=== PATIENT | female | born 1945 | race Caucasian/White ===

== ENCOUNTER 2020-01-16 07:44 | Outpatient (CLI) | payer OTHER, SELFPAY ==
[2020-01-18 13:56] LABS: SARS-CoV-2 RNA Undetected (Undetected); SARS-CoV-2 Specimen Source Nasopharynx
== END 2020-01-16 08:04 ==
PROVIDERS: Visit Provider Internal Medicine
DX: Z11.59 Encounter for screening for other viral diseases (principal)
CPT/HCPCS: U0003

== ENCOUNTER 2024-01-13 09:35 | Emergency (ER) | payer MEDICARE, SELFPAY ==
[2024-01-13] VITALS (34 sets, daily range): BP systolic 139–205; BP diastolic 65–101; PULSE 69–95; RESP 8–24; TEMP 36.2; O2SAT 94–98
--- NOTE | 2024-01-13 10:02 | ED.GENADUL_ITS ---
Discharge Plan Disposition Patient Disposition: Transfer-Acute Inpatient Care Specific Acute Inpt Facility: [facility] Condition: Stable Discharge Details Chief Complaint: Trauma Clinical Impression: Fracture, tibial plateau, Bilateral calcaneal fractures, Deep laceration of ankle, Closed L1 vertebral fracture, Foot, fracture, navicular Primary Care Provider: Unknown,Unknown ED Provider: Enrique Ansari General Date/Time Provider Initiated Documentation: 01/13/24 09:55 . HPI Narrative: 78-year-old female brought in for evaluation of deep lacerations to bilateral posterior ankles, fell from a 16 foot ladder and got her lower extremities caught in the rungs, hemostatic; patient landed on her back denies losing consciousness denies chest or abdominal discomfort does have some mid and lower back discomfort, denies blood thinner use General Stated Complaint: Trauma CRYSTAL: 2 Exam Narrative Exam Narrative: Alert oriented no acute distress does appear mildly uncomfortable Moist mucous membranes telling secretions Pupils round equal reactive to light No midline cervical tenderness step-off crepitus or deformity Lungs clear bilaterally no rales rhonchi or wheezing Normal heart sounds no murmurs rubs or gallops Abdomen soft nontender nondistended no appreciable ecchymosis Pelvis stable, full range of motion all of extremities Deep flap lacerations to bilateral posterior lower extremities just above ankle with exposed muscle belly and subcutaneous fat, hemostatic no foreign bodies appreciated, each laceration is greater than 10 to 15 cm in total length; bilateral DP pulses intact bilateral sensation in feet foot intact, full plantarflexion and dorsiflexion of foot and toes intact, soft compartments warm well-perfused, patient does have some ecchymosis and tenderness to anterior right knee without effusion crepitus or obvious deformity Course Vital Signs Vital signs: Vital Signs Temperature 36.2 C L 01/13/24 09:45 Pulse 80 01/13/24 09:45 Respiratory Rate 20 01/13/24 09:45 Blood Pressure 205/92 H 01/13/24 09:45 Pulse Oximetry 97 01/13/24 09:45 Temperature 36.2 C L 01/13/24 09:45 Temperature Source Temporal Artery Scan 01/13/24 09:45 Pulse 80 01/13/24 09:45 Respiratory Rate 20 01/13/24 09:45 Respiratory Effort Normal 01/13/24 09:50 Respiratory Depth Normal 01/13/24 09:50 Respiratory Pattern Normal 01/13/24 09:50 Blood Pressure 205/92 H 01/13/24 09:45 Blood Pressure Position Supine 01/13/24 09:45 Pulse Oximetry 97 01/13/24 09:45 Oxygen Delivery Method Room Air 01/13/24 09:45 Oxygen Flow Rate 0 01/13/24 09:45 Pain Level 7 01/13/24 09:50 Medical Decision Making 78-year-old female brought in for evaluation of deep lacerations to bilateral posterior ankles, fell from a 16 foot ladder and got her lower extremities caught in the rungs, hemostatic; patient landed on her back denies losing consciousness denies chest or abdominal discomfort does have some mid and lower back discomfort, denies blood thinner use; see physical examination for full detailed description of bilateral deep posterior ankle lacerations, neurovascular exam of limb intact, strength and sensation intact, of note Achilles function intact bilaterally; air intact breathing circulation intact hemodynamically stable, patient does have upper lumbar/lower thoracic back discomfort without midline tenderness step-off crepitus or deformity, GCS of 15, gaping deep flap-like lacerations to lower extremities bilaterally hemostatic no foreign bodies, initiating Ancef given size and type of wound, patient relatively comfortable would like to start slow with analgesia will initiate IV acetaminophen, crystalloid fluid, will obtain basic labs type and screen coags, given height of fall and distracting injuries will obtain CT head CT C-spine CT T and L-spine given mid back discomfort CT chest abdomen pelvis, x-ray of right humerus right tib-fib right ankle, x-ray of left tib-fib and left ankle, will boost Tdap, will likely flip patient into prone position in order to best approach laceration repair 12: 49 evidence of right tibial plateau fracture right calcaneus fracture left calcaneus fracture left navicular fracture, left gluteal hematoma and L1 superior endplate fracture, concern for muscle belly/Achilles involvement bilaterally given depth of lacerations despite dorsiflexion on examination being largely intact, patient's limbs remained hemodynamically stable with DP pulses intact sensate and mobile, hemostatic. I have contacted [facility] trauma team/orthopedic team to discuss transfer for operative intervention. Patient remains hemodynamically stable resting comfortably no acute distress 15: 08 discussed case with [facility] trauma team Dr. Calix who is excepted patient for trauma alert. Will splint lower extremities for comfort and safety of transport. Quality:SDOH Health Related Social Needs: No Data to Display PFSH All Active Problems (Updated 01/13/24 @ 13:12 by Enrique Ansari MD) Foot, fracture, navicular (Acute) Closed L1 vertebral fracture (Acute) Deep laceration of ankle (Acute) Bilateral calcaneal fractures (Acute) Fracture, tibial plateau (Acute) Social History Smoking/Tobacco Use Status: Never Smoking risk assessment performed?: Yes Alcohol Intake: never Substance use type: does not use Housing: house Do you feel safe at home: Yes Do you feel safe in your relationship?: Yes
[2024-01-13 10:35] LABS: Abs Immature Grans 0.25 10^3/uL (0.0-0.06); Absolute Basophil Count 0.07 10^3/uL (0.0-0.2); Absolute Eosinophil Count 0.08 10^3/uL (0.0-0.7); Absolute Lymphocyte Count 0.73 10^3/uL (1.2-3.4); Absolute Monocyte Count 0.56 10^3/uL (0.1-0.8); Absolute Neutrophil Count 7.75 10^3/uL (1.2-6.7); Basophils % 0.7 %; Eosinophils % 0.8 %; HGB 13.1 g/dL (11.2-15.7); Immature Grans % 2.6 %; Lymphocytes % 7.7 %; MCH 32.3 pg (27.0-33.0); MCHC 34.5 % (32.0-36.0); MCV 94 fL (80-95); MPV 8.7 fL (8.0-11.0); Monocytes % 5.9 %; Neutrophils % 82.3 %; Platelet Count 227 10^3/uL (130-400); RBC 4.05 10^6/uL (3.93-5.22); RDW 12.2 % (11.7-14.6); RDW-SD 42.5 fL; WBC 9.44 10^3/uL (4.4-10.8)
--- NOTE | 2024-01-13 10:45 | NUR.NOTE ---
Nursing Note: 1010: placed adult c collar on pt.
[2024-01-13] MEDS: ACETAMINOPHEN 1,000 MG/100 ML BTL 400 MG IVPB (10:46)
[2024-01-13] MEDS: Normal Saline 1,000 ML 1000 ML IV (10:48)
[2024-01-13 10:49] LABS: INR 1.1 (0.9-1.1); PTT Activated 22.7 sec (23.6-32.8); Prothrombin Time 10.6 sec (9.1-11.1)
[2024-01-13 10:51] LABS: ALT 39 U/L (14-59); AST 41 U/L (15-37); Albumin 3.7 g/dL (3.4-5.0); Alkaline Phosphatase 59 U/L (46-116); Anion Gap 8.5 mmol/L (3-11); BUN 15 mg/dL (7-18); Bilirubin, Total 1.13 mg/dL (0.2-1.0); CO2 28.5 mmol/L (21.0-32.0); CREATININE 0.7 mg/dL (0.55-1.02); Chloride 98 mmol/L (98-107); Estimated GFR 89.02 (mL/min/1.73m2); Glucose 131 mg/dL (74-106); Potassium 3.6 mmol/L (3.5-5.1); Sodium 135 mmol/L (136-145); Total Protein 6.5 g/dL (6.4-8.2)
[2024-01-13] MEDS: Omnipaque 350 MG/ML 100 ML BTL IJ (11:03)
[2024-01-13] MEDS: Normal Saline - Diluent 50 ML VIAL IJ (11:04)
--- NOTE | 2024-01-13 11:12 | DI.CT_ITS ---
Exam(s) CT HEAD CERVICAL SPINE WO EXAM: CT HEAD CERVICAL SPINE WO CLINICAL HISTORY: fall 16 foot ladder. TECHNIQUE: Imaging Protocol: Axial computed tomography images with coronal and sagittal reformatted images were created and reviewed COMPARISON: No exams were available for comparison FINDINGS: CT Head: Ventricles and Extra axial spaces: Normal in size and morphology for the patient's age. Hemorrhage: None. Cerebral parenchyma: There are areas of decreased attenuation in the white matter consistent with chr onic microvascular ischemic disease. No mass effect is identified. Midline shift: None. Brainstem/Cerebellum: Normal. Calvarium: Normal. Visualized Paranasal sinuses/Mastoids: Clear. Soft Tissues: There is mild soft tissue swelling overlying the left forehead. CT Cervical Spine: Bones: No acute fracture or subluxation. Age-appropriate degenerative changes are seen in the cervica l spine. There is mild reversal of the normal cervical lordosis. Soft Tissues: Unremarkable. Lung Apices: Clear. IMPRESSION: 1. No acute intracranial process. 2. No acute fracture or subluxation in the cervical spine. RADIATION DOSE DELIVERED: Total DLP DATA REPOSITORY: All CT scans at this facility are submitted to the National Radiology Data Registry (NRDR) Dose Index Registry (DIR) with the [employer] (A[employer]). RADIATION OPTIMIZATION: All CT scans at this facility use at least one of these dose optimization te chniques: automated exposure control; mA and/or kV adjustment per patient size (includes targeted exa ms where dose is matched to clinical indication); or iterative reconstruction.
--- NOTE | 2024-01-13 11:30 | DI.CT_ITS ---
Exam(s) CT CHEST/ABD/PEL W CT THORACIC LUMBAR SPINE REC EXAM: CT CHEST/ABD/PEL W and CT thoracic and lumbar spine recons CLINICAL HISTORY: fall 16 foot ladder TECHNIQUE: Imaging Protocol: Axial computed tomography images with coronal and sagittal reformatted images were created and reviewed CONTRAST MATERIAL: Intravenous: Omnipaque 350 contrast volume:100 mL Oral: No COMPARISON: CT CT THORACIC LUMBAR SPINE REC from 01/13/2024 FINDINGS: CHEST: Tracheobronchial tree: Patent where visualized. Pulmonary parenchyma: No consolidation or dominant measurable mass. No architectural distortion. Visualized thyroid gland: Unremarkable. Mediastinum and Marci: No dominant adenopathy or fluid collection. The esophagus is unremarkable. Pleura: No effusion or pneumothorax. Heart: The heart is not dilated. No coronary artery calcifications are seen. No pericardial effusion. Pulmonary arteries: The pulmonary arteries are not adequately opacified for evaluation of pulmonary e mboli. This is due to the timing of the bolus. Aorta: Atherosclerotic calcification is seen. There is no evidence of dissection. Lymph nodes: Within normal limits. Soft tissues: Unremarkable. Bones:Within normal limits for the patient's age. There are no displaced rib fracture seen at this t chito. CT thoracic spine recons: No acute fractures or subluxations are present. CT lumbar spine recons: There is cortical irregularity of the superior endplate of L1 suspicious for nondisplaced superior endplate fracture. There is a left convex scoliosis of the lumbar spine. Mode rately severe degenerative changes are present throughout the lumbar spine. No subluxation is seen.. ABDOMEN: Liver: Normal density. No measurable mass. Portal, Superior Mesenteric, and Splenic Veins: Unremarkable. Gallbladder and Biliary Tract: No radiodense calculus or dilation. Pancreas: Normal density, no abnormal calcifications or inflammatory process. Spleen: Normal. Adrenals: No masses seen. Kidneys: Normal size, contour and axis. No radiodense stones or obstructive uropathy. No masses seen. Abdominal Aorta: Abdominal portion non-dilated. Atherosclerotic calcification is present. Bowel: There is diverticulosis of the colon but no evidence of acute diverticulitis. The stomach is incompletely distended limiting evaluation. There is no evidence of obstruction or bowel wall thicke zaynab. No evidence of appendicitis. Peritoneal Cavity: No ascites, collection or mesenteric inflammatory response. No free air. Lymph Nodes: Within normal limits. Bones: Within normal limits for the patient's age. Soft Tissues: There is a small fat containing umbilical hernia. There is infiltration of the soft ti ssues adjacent to the left gluteal muscles thickening suggestive of a contusion. There is a focus of hyper density within the area which may represent hemorrhage. PELVIS: Bladder: Symmetric distention, no gross wall thickening. Reproductive Organs: The uterus is markedly enlarged and contains multiple calcified uterine fibroids . Lymph Nodes: Within normal limits. Bones: Within normal limits. IMPRESSION: 1. No acute pulmonary process. 2. No acute abdominal or pelvic organ injury. 3. Infiltration of the soft tissues adjacent to the left gluteal muscles consistent with a contusion. There is a focus of hyperdensity within the area which may represent hemorrhage. 4. Cortical irregularity of the superior endplate of L1 suspicious for nondepressed fracture. RADIATION DOSE DELIVERED: Total DLP DATA REPOSITORY: All CT scans at this facility are submitted to the National Radiology Data Registry (NRDR) Dose Index Registry (DIR) with the [employer] (ACR). RADIATION OPTIMIZATION: All CT scans at this facility use at least one of these dose optimization te chniques: automated exposure control; mA and/or kV adjustment per patient size (includes targeted exa ms where dose is matched to clinical indication); or iterative reconstruction.
--- NOTE | 2024-01-13 11:59 | DI.RAD_ITS ---
Exam(s) XR TIB/FIB LT XR ANKLE LT COMPLETE EXAM: XR ANKLE LT COMPLETE and XR tib/fib LT CLINICAL HISTORY: deep ankle laceraton, fall from ladder TECHNIQUE: 2D digital imaging was performed of the left tib/fib and ankle. Five images were obtaine d. AP, lateral and oblique views were obtained. COMPARISON: No previous for comparison. FINDINGS: BONES: There is a nondisplaced fracture of the superior medial aspect of the navicular bone. There i s a comminuted fracture of the body of the calcaneus with extension anteriorly into the calcaneocuboi d joint. The fracture extends into the subtalar joint. There is loss of the normal Boehler's angle. No tibial or fibular fracture. No bony destructive lesion is seen. JOINTS:The ankle mortise is normally aligned. SOFT TISSUE: Normal. IMPRESSION: 1. Comminuted intra-articular fractures involving the calcaneus as described above. 2. Nondisplaced fracture involving the superior medial navicular. DATA REPOSITORY: RADIATION DOSE DELIVERED:
--- NOTE | 2024-01-13 12:00 | DI.RAD_ITS ---
Exam(s) XR ANKLE RT COMPLETE XR TIB/FIB RT XR FEMUR RT EXAM: XR ANKLE RT COMPLETE, XR femur RT and XR tib/fib RT CLINICAL HISTORY: deep ankle laceration, fall from ladder. TECHNIQUE: 2D digital imaging was performed of the right femur, tib/fib and ankle. Nine images were obtained. AP, lateral and oblique views were obtained. COMPARISON: No priors for comparison. FINDINGS: BONES: There is no evidence of a femoral fracture. There is a comminuted mildly depressed lateral ti bial plateau fracture. 3 mm of depression is noted. There is a right knee hemarthrosis. There is a fracture of the posterior process of the calcaneus. There is loss of the normal Boehler's angle. JOINTS: The ankle mortise is normally aligned. SOFT TISSUE: Multiple calcifications are seen in the pelvis consistent with uterine fibroids. There is contrast seen in the urinary bladder from the patient's CT scan. There is a laceration seen in th e soft tissues posterior to the tibia and fibula. IMPRESSION: 1. Comminuted mildly depressed lateral tibial plateau fracture with a right knee hemarthrosis. 2. Acute fracture of the posterior process of the calcaneus. 3. Laceration in the soft tissues of the posterior lower leg. DATA REPOSITORY: RADIATION DOSE DELIVERED:
== END 2024-01-13 14:51 | disposition short-term general hospital (02) ==
LOC: ER 13:39
PROVIDERS: Emergency Provider Emergency Medicine
DX: S92.252A Displaced fracture of navicular [scaphoid] of left foot, initial encounter for closed fracture (principal); S32.018A Other fracture of first lumbar vertebra, initial encounter for closed fracture; S91.011A Laceration without foreign body, right ankle, initial encounter; S91.012A Laceration without foreign body, left ankle, initial encounter; S82.141A Displaced bicondylar fracture of right tibia, initial encounter for closed fracture; S92.001A Unspecified fracture of right calcaneus, initial encounter for closed fracture; S92.062A Displaced intraarticular fracture of left calcaneus, initial encounter for closed fracture; Z23 Encounter for immunization; W11.XXXA Fall on and from ladder, initial encounter
CPT/HCPCS: 12006; 27530; 27786; 36415; 73552; 74177; 80053; 86850; 86900; 86901; 90471; 90715; 96361; 96365; 96375; 99285; 70450; 71260; 72125; 73590; 73610; 85025; 85610; 85730; J0131; J0690; J3490